=== PATIENT | female | born 1980 | race Caucasian/White ===

== ENCOUNTER 2017-08-04 13:07 | Emergency (ER) | payer OTHER ==
[2017-08-04] MEDS: IBUPROFEN 600 MG TAB PO (13:44)
[2017-08-04] MEDS: LIDOCAINE 1% (MDV) 20 ML INJ SC (13:47)
== END 2017-08-04 14:42 | disposition home or self-care (01) ==
LOC: FTE 13:07
DX: L02.412 Cutaneous abscess of left axilla (principal); L02.411 Cutaneous abscess of right axilla; I10 Essential (primary) hypertension; F17.210 Nicotine dependence, cigarettes, uncomplicated
CPT/HCPCS: 99284; Z7502